=== PATIENT | female | born 1960 | race African-American/Black ===

== ENCOUNTER 2021-04-29 04:39 | Inpatient (IN) | payer MEDICAID ==
[~2021-04-29] VITALS: Ht 172.7 cm; Wt 90.7 kg
[~2021-04-29 04:39] MED LIST: AML5T PO; DOX100T PO; HYDR25TA5 PO; INSREGI SC; INSUINJ37 SC; LOSA-69 PO
[2021-04-29] MEDS ORDERED: IPRATROPIUM BROM 0.5 MG/2.5ML INH SOL ONE (04:45)
[2021-04-29] MEDS ORDERED: ALBUTEROL SULF 2.5 MG/0.5ML(0.5%) NEB SOLN ONE (04:45)
[2021-04-29] MEDS ORDERED: methylPREDNISolone SOD SUCC 125 MG/2 ML VL ONE (04:52)
[2021-04-29] MEDS ORDERED: cefTRIAXone 1GM/50ML D5W 50 ML IV ONE (05:00)
[2021-04-29] MEDS ORDERED: methylPREDNISolone SOD SUCC 125 MG/2 ML VL IV ONE (05:00)
[2021-04-29] MEDS ORDERED: ALBUTEROL SULF 2.5 MG/0.5ML(0.5%) NEB SOLN NEB ONE (05:15)
[2021-04-29] MEDS ORDERED: IPRATROPIUM BROM 0.5 MG/2.5ML INH SOL NEB ONE (05:15)
[2021-04-29 05:20] LABS: Basophils # (auto) 0.1 10 ^3/uL (0-0.2); Basophils % (auto) 0.4 % (0.0-2.0); Eosinophils # (auto) 0.1 10 ^3/uL (0-0.8); Eosinophils % (auto) 0.7 % (0.0-7.0); Hematocrit 41.5 % (36.0-46.0); Hemoglobin 13.3 g/dL (12.2-16.2); Lymphocytes # (auto) 2.3 10 ^3/uL (0.4-5.4); Lymphocytes % (auto) 15.9 % (10.0-50.0); Mean Corpuscular Hemoglobin 25.8 pg (28.0-32.0); Mean Corpuscular Hgb Conc. 32.2 g/dL (32.0-36.0); Mean Corpuscular Volume 80.1 fL (80.0-100.0); Monocytes # (auto) 1.4 10 ^3/uL (0-1.3); Monocytes % (auto) 9.8 % (0.0-12.0); Neutrophils # (auto) 10.5 10 ^3/uL (1.6-8.6); Neutrophils % (auto) 73.2 % (37.0-80.0); Red Blood Cells 5.18 10^6/uL (4.0-5.20); Red Cell Distribution Width 13.4 % (11.8-14.3); White Blood Cell 14.4 10^3/uL (4.4-10.8)
[2021-04-29 05:29] LABS: Alanine Aminotransferase 36 U/L (13-56); Albumin 3.7 g/dL (3.4-5.0); Anion Gap 7 (5-15); BUN/Creatinine Ratio 10.9; Blood Urea Nitrogen 10 mg/dL (7-18); Calcium 8.9 mg/dL (8.5-10.1); Carbon Dioxide 26 mmol/L (21-32); Chloride 101 mmol/L (98-107); GFR African American 80 mL/min; GFR Non-African American 66 mL/min; Glucose 209 mg/dL (74-106); Potassium 4.2 mmol/L (3.5-5.1); Sodium 134 mmol/L (136-145)
[2021-04-29 05:35] LABS: Alkaline Phosphatase 169 U/L (45-117); Aspartate Aminotransferase 28 U/L (15-37); Bilirubin, Total 0.4 mg/dL (0.2-1.0); Total Protein 7.9 g/dL (6.4-8.2)
[2021-04-29] MEDS ORDERED: LABETALOL HCL 5 MG/ML 4ML SYRINGE IV ONE (06:30)
[2021-04-29] MEDS ORDERED: FUROSEMIDE 40 MG/4 ML VIAL IV ONE (08:30)
[2021-04-29] MEDS ORDERED: ACETAMINOPHEN 325 MG TAB PO PRN (10:30)
[2021-04-29] MEDS ORDERED: NITROGLYCERIN 0.4 MG SL TAB SL PRN (10:30)
[2021-04-29] MEDS ORDERED: ONDANSETRON HCL 4 MG/2 ML VIAL IV PRN (10:30)
[2021-04-29] MEDS ORDERED: HYDROcodone-ACET 5/325MG TAB PO PRN (10:30)
[2021-04-29] MEDS ORDERED: MORPHINE SULFATE INJECTION 2 MG/ML SYRG IV PRN ×2 (10:30)
[2021-04-29] MEDS ORDERED: INSU1INJ19 SC (14:43)
[2021-04-29 17:00] VITALS: BP 168/104
[2021-04-29] MEDS: ALBUTEROL SULF 2.5 MG/0.5ML(0.5%) NEB SOLN NEB PRN ×2 (17:55→22:14)
[2021-04-29] MEDS: IPRATROPIUM BROM 0.5 MG/2.5ML INH SOL NEB PRN ×2 (17:55→22:14)
[2021-04-29] MEDS: methylPREDNISolone SOD SUCC 125 MG/2 ML VL IV SCH ×2 (18:33→21:11)
[2021-04-29] MEDS: hydrALAZINE HCL 20 MG/ML VL IV PRN (18:51)
[2021-04-29 22:00] VITALS: BP 172/95
[2021-04-29] MEDS ORDERED: METOPROLOL SUCCINATE XL 50 MG TAB PO ONE (22:00)
[2021-04-29 23:01] VITALS: BP 132/100
[2021-04-30] VITALS (7 sets, daily range): BP systolic 140–162; BP diastolic 81–95
[2021-04-30] MEDS: IPRATROPIUM BROM 0.5 MG/2.5ML INH SOL NEB PRN ×2 (02:18→06:46)
[2021-04-30] MEDS: ALBUTEROL SULF 2.5 MG/0.5ML(0.5%) NEB SOLN NEB PRN ×2 (02:19→06:46)
[2021-04-30] MEDS: hydrALAZINE HCL 20 MG/ML VL IV PRN ×2 (04:24→17:23)
[2021-04-30] MEDS: methylPREDNISolone SOD SUCC 125 MG/2 ML VL IV SCH (05:48)
[2021-04-30] MEDS: ALBUTEROL SULF 2.5 MG/0.5ML(0.5%) NEB SOLN NEB SCH ×4 (10:05→21:43)
[2021-04-30] MEDS: IPRATROPIUM BROM 0.5 MG/2.5ML INH SOL NEB SCH ×4 (10:05→21:44)
[2021-04-30] MEDS ORDERED: BUDESONIDE (INHALATION) 0.5 MG/2 ML NEB NEB ONE (11:30)
[2021-04-30] MEDS: guaiFENesin-DM 100/10mg/5ml SYR PO PRN ×2 (11:40→19:01)
[2021-04-30] MEDS: methylPREDNISolone SOD SUCC 40 MG/ML VL IV SCH ×2 (13:05→21:46)
[2021-04-30] MEDS: BUDESONIDE (INHALATION) 0.5 MG/2 ML NEB NEB SCH (18:50)
[2021-04-30] MEDS: ALPRAZolam 0.5 MG TAB PO PRN (20:11)
[2021-04-30] MEDS: ENOXAPARIN SOD 40 MG/0.4 ML SYRINGE SC SCH (20:12)
[2021-05-01] MEDS: ALBUTEROL SULF 2.5 MG/0.5ML(0.5%) NEB SOLN NEB SCH ×8 (02:44→21:59)
[2021-05-01] MEDS: IPRATROPIUM BROM 0.5 MG/2.5ML INH SOL NEB SCH ×8 (02:44→21:59)
[2021-05-01 05:00] VITALS: BP 135/90
[2021-05-01] MEDS: methylPREDNISolone SOD SUCC 40 MG/ML VL IV SCH ×3 (05:35→20:28)
[2021-05-01] MEDS: BUDESONIDE (INHALATION) 0.5 MG/2 ML NEB NEB SCH ×3 (06:47→18:25)
[2021-05-01] MEDS: guaiFENesin-DM 100/10mg/5ml SYR PO PRN ×2 (08:54→20:28)
[2021-05-01] MEDS: ENOXAPARIN SOD 40 MG/0.4 ML SYRINGE SC SCH (08:54)
[2021-05-01 09:00] VITALS: BP 152/81
[2021-05-01] MEDS: ALPRAZolam 0.5 MG TAB PO PRN ×2 (11:58→22:25)
[2021-05-01 12:51] VITALS: BP 144/80
[2021-05-01 16:52] VITALS: BP 131/92
[2021-05-01 21:57] VITALS: BP 159/103
[2021-05-02] MEDS: ALBUTEROL SULF 2.5 MG/0.5ML(0.5%) NEB SOLN NEB SCH ×7 (02:00→22:24)
[2021-05-02] MEDS: IPRATROPIUM BROM 0.5 MG/2.5ML INH SOL NEB SCH ×7 (02:00→22:24)
[2021-05-02 05:00] VITALS: BP 140/85
[2021-05-02 06:08] LABS: Basophils # (auto) 0 10 ^3/uL (0-0.2); Basophils % (auto) 0.1 % (0.0-2.0); Eosinophils # (auto) 0 10 ^3/uL (0-0.8); Hemoglobin 13.8 g/dL (12.2-16.2); Mean Corpuscular Hemoglobin 26.5 pg (28.0-32.0); Mean Corpuscular Hgb Conc. 32.8 g/dL (32.0-36.0); Red Cell Distribution Width 13.1 % (11.8-14.3)
[2021-05-02 06:09] LABS: Hematocrit 42.1 % (36.0-46.0); Lymphocytes % (auto) 5.4 % (10.0-50.0); Mean Corpuscular Volume 80.7 fL (80.0-100.0); Monocytes # (auto) 0.5 10 ^3/uL (0-1.3); Neutrophils # (auto) 16.7 10 ^3/uL (1.6-8.6); Neutrophils % (auto) 91.5 % (37.0-80.0); Red Blood Cells 5.22 10^6/uL (4.0-5.20); White Blood Cell 18.3 10^3/uL (4.4-10.8)
[2021-05-02 06:16] LABS: Calcium 8.8 mg/dL (8.5-10.1); Potassium 5.4 mmol/L (3.5-5.1)
[2021-05-02] MEDS: BUDESONIDE (INHALATION) 0.5 MG/2 ML NEB NEB SCH ×2 (06:18→18:59)
[2021-05-02] MEDS: methylPREDNISolone SOD SUCC 40 MG/ML VL IV SCH ×2 (06:20→21:19)
[2021-05-02 06:23] LABS: BUN/Creatinine Ratio 40.9; Magnesium 3.2 mg/dL (1.6-2.6)
[2021-05-02] MEDS ORDERED: DEXTROSE (50%) 50ML SYRG IV PRN (07:15)
[2021-05-02] MEDS ORDERED: InsuLIN REG 1unit/0.01ml Soln (100units/ml) IV ONE (08:45)
[2021-05-02 09:00] VITALS: BP 158/80
[2021-05-02] MEDS: ENOXAPARIN SOD 40 MG/0.4 ML SYRINGE SC SCH (09:21)
[2021-05-02] MEDS: ACCU-CHEK COMFORT CURVE STRIP VI SCH ×3 (11:58→21:19)
[2021-05-02] MEDS: InsuLIN REG 1unit/0.01ml Soln (100units/ml) SC SCH ×3 (11:59→21:09)
[2021-05-02] MEDS: ALPRAZolam 0.5 MG TAB PO PRN ×2 (12:38→21:19)
[2021-05-02 13:00] VITALS: BP 157/78
[2021-05-02 17:00] VITALS: BP 135/80
[2021-05-02] MEDS: guaiFENesin-DM 100/10mg/5ml SYR PO PRN (17:52)
[2021-05-02] MEDS: INSULIN LANTUS (GLARGINE) 1 /0.01ml (100units/ml) SC SCH (21:09)
[2021-05-02 22:00] VITALS: BP 149/90
[2021-05-03] MEDS: ALBUTEROL SULF 2.5 MG/0.5ML(0.5%) NEB SOLN NEB SCH ×6 (02:00→22:45)
[2021-05-03] MEDS: IPRATROPIUM BROM 0.5 MG/2.5ML INH SOL NEB SCH ×6 (02:00→22:45)
[2021-05-03 05:00] VITALS: BP 157/77
[2021-05-03] MEDS: ACCU-CHEK COMFORT CURVE STRIP VI SCH ×4 (05:11→21:03)
[2021-05-03] MEDS: InsuLIN REG 1unit/0.01ml Soln (100units/ml) SC SCH ×4 (05:13→21:08)
[2021-05-03] MEDS: BUDESONIDE (INHALATION) 0.5 MG/2 ML NEB NEB SCH (07:27)
[2021-05-03 09:00] VITALS: BP 149/98
[2021-05-03] MEDS ORDERED: amLODIPine BESYLATE 5 MG TAB PO ONE (10:00)
[2021-05-03] MEDS: ENOXAPARIN SOD 40 MG/0.4 ML SYRINGE SC SCH (10:10)
[2021-05-03] MEDS: methylPREDNISolone SOD SUCC 40 MG/ML VL IV SCH ×2 (10:10→21:03)
[2021-05-03] MEDS: ALPRAZolam 0.5 MG TAB PO PRN (10:11)
[2021-05-03] MEDS: guaiFENesin-DM 100/10mg/5ml SYR PO PRN (10:11)
[2021-05-03 10:31] LABS: Basophils # (auto) 0.1 10 ^3/uL (0-0.2); Eosinophils # (auto) 0 10 ^3/uL (0-0.8); Hemoglobin 14.3 g/dL (12.2-16.2); Lymphocytes # (auto) 1.8 10 ^3/uL (0.4-5.4)
[2021-05-03 10:33] LABS: Basophils % (auto) 0.3 % (0.0-2.0); Hematocrit 44.5 % (36.0-46.0); Lymphocytes % (auto) 8.6 % (10.0-50.0); Mean Corpuscular Hemoglobin 25.9 pg (28.0-32.0); Mean Corpuscular Hgb Conc. 32.2 g/dL (32.0-36.0); Mean Corpuscular Volume 80.5 fL (80.0-100.0); Monocytes # (auto) 1.3 10 ^3/uL (0-1.3); Monocytes % (auto) 5.9 % (0.0-12.0); Neutrophils % (auto) 85.2 % (37.0-80.0); Nucleated Red Blood Cells % 0.3 %; Red Blood Cells 5.53 10^6/uL (4.0-5.20); Red Cell Distribution Width 13.5 % (11.8-14.3); White Blood Cell 21.1 10^3/uL (4.4-10.8)
[2021-05-03 10:58] LABS: BUN/Creatinine Ratio 41.7; Calcium 8.7 mg/dL (8.5-10.1)
[2021-05-03 12:47] VITALS: BP 140/81
[2021-05-03 13:20] VITALS: BP 140/81
[2021-05-03 17:00] VITALS: BP 150/86
[2021-05-03] MEDS ORDERED: BUDESONIDE (INHALATION) 0.5 MG/2 ML NEB ONE (17:59)
[2021-05-03] MEDS ORDERED: ALBUTEROL SULF 2.5 MG/0.5ML(0.5%) NEB SOLN ONE (17:59)
[2021-05-03] MEDS ORDERED: IPRATROPIUM BROM 0.5 MG/2.5ML INH SOL ONE (17:59)
[2021-05-03] MEDS: INSULIN LANTUS (GLARGINE) 1 /0.01ml (100units/ml) SC SCH (21:08)
[2021-05-03 22:00] VITALS: BP 157/101
[2021-05-04] MEDS: IPRATROPIUM BROM 0.5 MG/2.5ML INH SOL NEB SCH ×4 (02:00→13:50)
[2021-05-04] MEDS: ALBUTEROL SULF 2.5 MG/0.5ML(0.5%) NEB SOLN NEB SCH ×4 (02:00→13:50)
[2021-05-04 05:00] VITALS: BP 149/92
[2021-05-04] MEDS: InsuLIN REG 1unit/0.01ml Soln (100units/ml) SC SCH ×2 (05:59→11:39)
[2021-05-04] MEDS: ACCU-CHEK COMFORT CURVE STRIP VI SCH ×2 (06:00→11:39)
[2021-05-04] MEDS: BUDESONIDE (INHALATION) 0.5 MG/2 ML NEB NEB SCH (06:39)
[2021-05-04 09:00] VITALS: BP 155/85
[2021-05-04] MEDS: methylPREDNISolone SOD SUCC 40 MG/ML VL IV SCH (09:19)
[2021-05-04] MEDS: ALPRAZolam 0.5 MG TAB PO PRN (09:19)
[2021-05-04] MEDS: ENOXAPARIN SOD 40 MG/0.4 ML SYRINGE SC SCH (09:19)
[2021-05-04] MEDS: guaiFENesin-DM 100/10mg/5ml SYR PO PRN (09:19)
[2021-05-04] MEDS ORDERED: amLODIPine BESYLATE 5 MG TAB PO SCH (10:00)
[2021-05-04 12:39] VITALS: BP 150/86
[2021-05-04 13:53] VITALS: BP 150/86
== END 2021-05-04 15:30 | disposition home or self-care (01) | DRG 133 ==
LOC: ER 04:39 → TELE 10:29 → TELE-WESTW 12:58
PROVIDERS: ADMIT Internal Medicine; ATTEND Internal Medicine
DX: J96.21 Acute and chronic respiratory failure with hypoxia (principal); N17.9 Acute kidney failure, unspecified; E11.65 Type 2 diabetes mellitus with hyperglycemia; E87.5 Hyperkalemia; J44.1 Chronic obstructive pulmonary disease with (acute) exacerbation; I48.91 Unspecified atrial fibrillation; E66.9 Obesity, unspecified; D72.829 Elevated white blood cell count, unspecified; I10 Essential (primary) hypertension; Z68.30 Body mass index [BMI] 30.0-30.9, adult; F17.210 Nicotine dependence, cigarettes, uncomplicated; J20.9 Acute bronchitis, unspecified; Z20.822 Contact with and (suspected) exposure to COVID-19; J44.0 Chronic obstructive pulmonary disease with (acute) lower respiratory infection; T38.0X5A Adverse effect of glucocorticoids and synthetic analogues, initial encounter; Z79.4 Long term (current) use of insulin; Z82.49 Family history of ischemic heart disease and other diseases of the circulatory system; Z81.1 Family history of alcohol abuse and dependence
CPT/HCPCS: 36415; 36600; 71045; 80048; 80053; 82805; 82962; 83735; 83880; 84484; 85025; 87426; 93005; 93306; 94640; 94644; 96365; 96375; 97110; 97116; 97163; 97530; 99291; G0378; J0696; J1815; J3490

== ENCOUNTER 2022-02-20 12:56 | Inpatient (IN) | payer MEDICAID ==
[~2022-02-20] VITALS: Ht 175.3 cm; Wt 94.0 kg
[~2022-02-20 12:56] MED LIST changes: +INSU1INJ19 SC
[2022-02-20] MEDS ORDERED: FUROSEMIDE 40 MG/4 ML VIAL IV ONE (13:15)
[2022-02-20] MEDS: NITROGLYCERIN 0.4 MG SL TAB SL ONE ×2 (13:48→16:37)
[2022-02-20 14:47] LABS: Basophils # (auto) 0 10 ^3/uL (0-0.2); Eosinophils # (auto) 0 10 ^3/uL (0-0.8); Monocytes # (auto) 0.7 10 ^3/uL (0-1.3); Monocytes % (auto) 4.7 % (0.0-12.0); Red Cell Distribution Width 14.1 % (11.8-14.3)
[2022-02-20 14:50] LABS: Basophils % (auto) 0.2 % (0.0-2.0); Hematocrit 42.8 % (36.0-46.0); Hemoglobin 13.6 g/dL (12.2-16.2); Lymphocytes # (auto) 1.1 10 ^3/uL (0.4-5.4); Lymphocytes % (auto) 7.5 % (10.0-50.0); Mean Corpuscular Hgb Conc. 31.8 g/dL (32.0-36.0); Mean Corpuscular Volume 81.9 fL (80.0-100.0); Neutrophils % (auto) 87.6 % (37.0-80.0); Nucleated Red Blood Cells % 0.1 %; Red Blood Cells 5.23 10^6/uL (4.0-5.20); White Blood Cell 14.8 10^3/uL (4.4-10.8)
[2022-02-20 14:57] LABS: Albumin 3.3 g/dL (3.4-5.0); Calcium 9.2 mg/dL (8.5-10.1); Magnesium 2.3 mg/dL (1.6-2.6); Potassium 3.8 mmol/L (3.5-5.1)
[2022-02-20 15:02] LABS: BUN/Creatinine Ratio 11.9; Bilirubin, Total 0.5 mg/dL (0.2-1.0); Total Protein 7.3 g/dL (6.4-8.2)
[2022-02-20] MEDS ORDERED: NITROGLYCERIN 0.4 MG SL TAB SL PRN (16:00)
[2022-02-20] MEDS ORDERED: hydrALAZINE HCL 20 MG/ML VL IV ONE (19:15)
[2022-02-20] MEDS ORDERED: hydrALAZINE HCL 20 MG/ML VL IV PRN (22:45)
[2022-02-20] MEDS ORDERED: amLODIPine BESYLATE 5 MG TAB PO SCH (22:45)
[2022-02-20] MEDS ORDERED: ACETAMINOPHEN 325 MG TAB PO PRN (22:45)
[2022-02-20] MEDS ORDERED: ONDANSETRON HCL 4 MG/2 ML VIAL IV PRN ×2 (22:45→23:00)
[2022-02-20] MEDS ORDERED: HYDROcodone-ACET 5/325MG TAB PO PRN (22:45)
[2022-02-20] MEDS ORDERED: ALBUTEROL SULF 2.5 MG/0.5ML(0.5%) NEB SOLN NEB PRN (22:45)
[2022-02-20 22:55] VITALS: BP 184/100
[2022-02-20] MEDS ORDERED: ACETAMINOPHEN 500 MG TAB PO PRN (23:00)
[2022-02-20] MEDS: METOPROLOL TARTRATE 25 MG TAB PO SCH (23:17)
[2022-02-21] MEDS: IPRATROPIUM BROM 0.5 MG/2.5ML INH SOL NEB SCH ×4 (00:17→18:53)
[2022-02-21] MEDS: MORPHINE SULFATE INJ 2 MG/ml SYRG IV PRN ×5 (02:41→19:33)
[2022-02-21 05:00] VITALS: BP 151/80
[2022-02-21 06:18] LABS: Cholesterol 147 mg/dL (< 200)
[2022-02-21 06:20] LABS: HDL Cholesterol 60 mg/dL (40-59); LDL Cholesterol 79 mg/dL (< 100); Triglycerides 45 mg/dL (< 150)
[2022-02-21 08:00] VITALS: BP 133/74
[2022-02-21 09:00] VITALS: BP 133/74
[2022-02-21] MEDS ORDERED: HCTZ 25 MG TAB PO SCH (10:00)
[2022-02-21] MEDS ORDERED: METOPROLOL TARTRATE 25 MG TAB PO SCH (10:00)
[2022-02-21] MEDS ORDERED: amLODIPine BESYLATE 5 MG TAB PO SCH (10:00)
[2022-02-21] MEDS: ASPirin 81 mg TAB PO SCH (10:34)
[2022-02-21] MEDS: LISINOPRIL 20 MG TAB PO SCH ×2 (10:34→22:04)
[2022-02-21] MEDS: METOPROLOL TARTRATE 25 MG TAB PO SCH ×2 (10:34→22:04)
[2022-02-21] MEDS ORDERED: DEXTROSE (50%) 50ML SYRG IV PRN (12:30)
[2022-02-21] MEDS ORDERED: FUROSEMIDE 20 MG/2 ML VIAL IV ONE (12:30)
[2022-02-21 13:00] VITALS: BP 148/91
[2022-02-21 16:58] VITALS: BP 139/84
[2022-02-21] MEDS: FUROSEMIDE 40 MG/4 ML VIAL IV SCH (17:22)
[2022-02-21] MEDS: ACCU-CHEK COMFORT CURVE STRIP VI SCH ×2 (17:24→22:04)
[2022-02-21] MEDS: InsuLIN REG 1unit/0.01ml Soln (100units/ml) SC SCH ×2 (17:26→22:00)
[2022-02-21] MEDS: BUDESONIDE (INHALATION) 0.5 MG/2 ML NEB NEB SCH (18:52)
[2022-02-21] MEDS: ALBUTEROL SULF 2.5 MG/0.5ML(0.5%) NEB SOLN NEB SCH (18:53)
[2022-02-21] MEDS ORDERED: MORPHINE SULFATE INJ 2 MG/ml SYRG IV PRN (19:45)
[2022-02-21 22:00] VITALS: BP 137/77
[2022-02-21] MEDS ORDERED: ATORVASTATIN 20 MG TAB PO SCH (22:00)
[2022-02-21] MEDS: methylPREDNISolone SOD SUCC 40 MG/ML VL IV SCH (22:03)
[2022-02-21] MEDS: POTASSIUM CHL 20 Meq TABLET PO SCH (22:03)
[2022-02-22 05:00] VITALS: BP 142/76
[2022-02-22] MEDS: FUROSEMIDE 40 MG/4 ML VIAL IV SCH (06:23)
[2022-02-22 06:36] LABS: BUN/Creatinine Ratio 18.6; Calcium 8.9 mg/dL (8.5-10.1); Potassium 4.2 mmol/L (3.5-5.1)
[2022-02-22] MEDS: ACCU-CHEK COMFORT CURVE STRIP VI SCH ×2 (06:45→12:10)
[2022-02-22] MEDS: InsuLIN REG 1unit/0.01ml Soln (100units/ml) SC SCH ×2 (06:55→12:10)
[2022-02-22] MEDS: IPRATROPIUM BROM 0.5 MG/2.5ML INH SOL NEB SCH ×2 (07:09→12:26)
[2022-02-22] MEDS: ALBUTEROL SULF 2.5 MG/0.5ML(0.5%) NEB SOLN NEB SCH ×2 (07:09→12:26)
[2022-02-22] MEDS: BUDESONIDE (INHALATION) 0.5 MG/2 ML NEB NEB SCH (07:09)
[2022-02-22 08:56] VITALS: BP 131/68
[2022-02-22] MEDS: ASPirin 81 mg TAB PO SCH (09:29)
[2022-02-22] MEDS: methylPREDNISolone SOD SUCC 40 MG/ML VL IV SCH (09:31)
[2022-02-22] MEDS: MORPHINE SULFATE INJ 2 MG/ml SYRG IV PRN (09:31)
[2022-02-22] MEDS: LISINOPRIL 20 MG TAB PO SCH (09:33)
[2022-02-22] MEDS: POTASSIUM CHL 20 Meq TABLET PO SCH (09:33)
[2022-02-22] MEDS: METOPROLOL TARTRATE 25 MG TAB PO SCH (09:33)
[2022-02-22] MEDS ORDERED: FAMOTIDINE 20 MG TAB PO SCH (10:00)
[2022-02-22] MEDS ORDERED: amLODIPine BESYLATE 5 MG TAB PO SCH (10:00)
[2022-02-22] MEDS ORDERED: AZITHROMYCIN 250 MG TAB PO SCH (10:00)
[2022-02-22] MEDS ORDERED: ENOXAPARIN SOD 40 MG/0.4 ML SYRINGE SC SCH (10:00)
[2022-02-22 13:00] VITALS: BP 133/73
[2022-02-22] MEDS ORDERED: THROAT LOZENGES(CEPASTAT) MT ONE (13:15)
[2022-02-22] MEDS ORDERED: PRED20TA2 PO (14:27)
[2022-02-22] MEDS ORDERED: IPRA0.00 IN (14:27)
[2022-02-22] MEDS ORDERED: AZIT250T9 PO (14:27)
[2022-02-22] MEDS ORDERED: ALB5IS NEB (14:27)
[2022-02-22 15:28] VITALS: BP 131/74
== END 2022-02-22 15:59 | disposition home or self-care (01) | DRG 194 ==
LOC: EDBD 12:56 → ER 12:56 → TELE 15:51 → TELE-WESTW 23:16
PROVIDERS: ADMIT Hospitalist; ATTEND Hospitalist
DX: I11.0 Hypertensive heart disease with heart failure (principal); J44.1 Chronic obstructive pulmonary disease with (acute) exacerbation; Z99.81 Dependence on supplemental oxygen; E11.9 Type 2 diabetes mellitus without complications; R07.89 Other chest pain; I50.21 Acute systolic (congestive) heart failure; Z20.822 Contact with and (suspected) exposure to COVID-19; E66.9 Obesity, unspecified; F17.210 Nicotine dependence, cigarettes, uncomplicated; Z68.30 Body mass index [BMI] 30.0-30.9, adult; Z79.4 Long term (current) use of insulin
CPT/HCPCS: 36415; 36600; 71045; 80048; 80053; 80061; 82805; 82962; 83036; 83735; 83880; 84443; 84484; 85025; 85379; 93005; 93306; 94640; 96374; 96375; G0378; J1815; J2405